=== PATIENT | male | born 1995 | race Caucasian/White ===

== ENCOUNTER 2017-02-02 15:38 | Emergency (ER) | payer SELFPAY ==
[2017-02-02 16:16] VITALS: BP 144/92; PULSE 96; O2SAT 97
--- NOTE | 2017-02-02 16:26 | ERPHSYRPT ---
- History of Present Illness Time Seen by Provider: 02/02/17 15:55 Source: patient, other (exgirlfriend; [facility] bilingual case manager Stanley Mcdonald) Patient Subjective Stated Complaint: PT STATES HE INJECTS METH-STATES HE HAS A HX OF IT-STATES HE LAST USED TODAY-INJECTED SAMIRA 0.5 G-"NOT ENOUGH"-STATES THAT IS HIS USUAL DOSE-DENIES PAIN-DENIES SOB-DENIES DIZZINESS NUMBNESS-STATES THAT HE HAS AN SAMIRA TOMORROW WITH STANLEY FROM [employer]-STATES HE WILL NOT GO INPT TREATMENT ANYWHERE-STATES HIS EXGIRLFRIEND "WOULD NOT SHUT THE HELL UP UNLESS I CAME IN HERE" Triage Nursing Assessment: PT PALE WARM ET [id number] TO ANSWER ANY QUESTION ASKED OF HIM-TENSE JERKY CONTROLLED MOVEMENTS NOTED-PT PICKING, LICKING HANDS ET FINGERS THROUGHOUT TRIAGE-PT STATED REPEATEDLY THAT HE DID NOT WANT TO HURT HIMSELF-PT STATED HE LIKED TO BE HIGH BUT DID NOT WANT TO HURT HIMSELF Physician History: CC: methamphetamine Hx: 21 y/o patient with hx of hepatitis C and meth abuse. He was out of [facility] for the past 7 weeks. Saw his HC case manger today and had plans to enter [facility] tomorrow and consideration for IP placement as able in next weeks. HE relapsed and started using meth. He shot meth an hour ago, has been using this week. Exgirlfriend brought him to ER wanting him to be admitted to IP. He denies complaints. No homicidal or suicidal ideation. No headache, pain, injury. No V/D. No fever. He states he does not want to be here and is ready to go home. Timing/Duration: today Allergies/Adverse Reactions: No Known Drug Allergies Allergy (Verified 02/02/17 16:16) Home Medications: No Reportable Medications [No Reported Medications] 02/02/17 [History] Hx Tetanus, Diphtheria Vaccination/Date Given: Yes Hx Influenza Vaccination/Date Given: No Hx Pneumococcal Vaccination/Date Given: No Immunizations Up to Date: Yes - Review of Systems Constitutional: No Fever, No Chills Eyes: No Symptoms Ears, Nose, & Throat: No Symptoms Respiratory: No Cough, No Dyspnea Cardiac: No Chest Pain Abdominal/Gastrointestinal: No Abdominal Pain, No Nausea, No Vomiting Skin: No Rash Neurological: No Dizziness, No Focal Weakness, No Headache, No Parasthesia Psychological: Drug Abuse, No Suicidal Ideations, No Homicidal Ideations, No Hallucinations All Other Systems: Reviewed and Negative - Past Medical History Pertinent Past Medical History: Yes Neurological History: No Pertinent History ENT History: No Pertinent History Cardiac History: No Pertinent History, Other Respiratory History: No Pertinent History Endocrine Medical History: No Pertinent History Musculoskeletal History: No Pertinent History GI Medical History: Hepatitis History: No Pertinent History Psycho-Social History: Depression Male Reproductive Disorders: No Pertinent History Other Medical History: pt reports a hx other than prior durg use and pneumonia. - Past Surgical History Past Surgical History: No Neuro Surgical History: No Pertinent History Cardiac: No Pertinent History Respiratory: No Pertinent History Gastrointestinal: No Pertinent History Genitourinary: No Pertinent History Musculoskeletal: No Pertinent History Male Surgical History: No Pertinent History Other Surgical History: Pt denies any past surgery hx - Social History Smoking Status: Current every day smoker How long have you smoked: 8 Exposure to second hand smoke: Yes Drug Use: methamphetamines Patient Lives Alone: No - Nursing Vital Signs Nursing Vital Signs: Initial Vital Signs Temperature 98.0 F 02/02/17 15:55 Pulse Rate 96 H 02/02/17 15:55 Respiratory Rate 20 02/02/17 15:55 Blood Pressure 144/92 02/02/17 15:55 O2 Sat by Pulse Oximetry 97 02/02/17 15:55 Pain Scale Pain Intensity 0 - Physical Exam General Appearance: alert, thin Eye Exam: PERRL/EOMI Ears, Nose, Throat Exam: normal ENT inspection, moist mucous membranes Neck Exam: normal inspection, non-tender, supple Respiratory Exam: normal breath sounds Cardiovascular Exam: regular rate/rhythm Gastrointestinal/Abdomen Exam: soft, No tenderness, No distention, No mass, No guarding Male Genitalia Exam: normal genitalia Extremity Exam: normal inspection, normal range of motion Neurologic Exam: alert, oriented x 3, cooperative, sensation nml, No motor deficits Skin Exam: warm, dry, other (heavily tattooed), No rash SpO2 Interpretation: normal SpO2: 97 Oxygen Delivery: Room Air - Course Nursing assessment & vital signs reviewed: Yes - Progress Progress Note: 02/02/17 16:25 Pt alert and oriented. He is calm. He understands situation. States I use meth but I don't want to hurt myself or anyone else. I want to go home. He plans to stay with his cousin in [place]. [facility] bilingual case manager Stanley here. She already met with pt. She feels he is safe and she will take him home to his cousin's. Pt declines labs or workup or medication. He appears to be stable for discharge. Counseled pt/family regarding: diagnosis, need for follow-up - Departure Time of Disposition: 16:26 Departure Disposition: Home Clinical Impression: Methamphetamine abuse, Hepatitis C Condition: Stable Critical Care Time: No Referrals: GLO FOSTER [Primary Care Provider] - Instructions: Methamphetamine. Additional Instructions: Return for problems or concerns. Stay in safe place. Follow up with [facility] as planned.
== END 2017-02-02 16:56 | disposition home or self-care (01) ==
LOC: ED 15:38
DX: F15.10 Other stimulant abuse, uncomplicated (principal); B19.20 Unspecified viral hepatitis C without hepatic coma
CPT/HCPCS: 99282; 99284

== ENCOUNTER 2018-08-09 17:19 | Emergency (ER) | payer OTHER ==
[2018-08-09 17:46] VITALS: BP 120/81; PULSE 65
[2018-08-09] MEDS ORDERED: solu-MEDROL 125 MG IM ONE (18:02)
[2018-08-09] MEDS ORDERED: Rocephin 1000 MG INJ IM ONE (18:02)
--- NOTE | 2018-08-09 18:11 | ERPHSYRPT ---
- History of Present Illness Time Seen by Provider: 08/09/18 17:50 Source: patient, family Exam Limitations: no limitations Patient Subjective Stated Complaint: here for a sinus infection after getting his nose broken 1 month ago.. did not follow up as planned Triage Nursing Assessment: alert and oriented and sniffing. maryjane has a sinus infection since he had his nose broken.. was [facility] and was to see a surgeon.. did not see the surgeon due to being arrested. he states the [facility] lost his medications and has not had them since the beginning of july. now he states he has a sinus infection. Physician History: 22 y/o white male presents with sinus pressure for 3 weeks. pt given rx of clindamycin. he was then incarcerated approx 2 to 3 days later and never received full tx. pt just released from [facility]. sx worse. pt does not have money for antibx but does have medical insurance. Timing/Duration: week(s) (3) Severity: mild Associated Symptoms: weakness, No nausea, No vomiting, No abdominal pain, No shortness of breath Allergies/Adverse Reactions: No Known Drug Allergies Allergy (Verified 02/02/17 16:16) Hx Tetanus, Diphtheria Vaccination/Date Given: Yes Hx Influenza Vaccination/Date Given: No Hx Pneumococcal Vaccination/Date Given: No Immunizations Up to Date: Yes - Review of Systems Constitutional: Weakness (mild) Eyes: No Symptoms Ears, Nose, & Throat: Nose Congestion, Nose Discharge, Sinus Drainage Respiratory: No Symptoms Cardiac: No Symptoms Abdominal/Gastrointestinal: No Symptoms Genitourinary Symptoms: No Symptoms Musculoskeletal: No Symptoms Skin: No Symptoms Neurological: No Symptoms Psychological: No Symptoms Endocrine: No Symptoms Hematologic/Lymphatic: No Symptoms Immunological/Allergic: No Symptoms All Other Systems: Reviewed and Negative - Past Medical History Pertinent Past Medical History: Yes Neurological History: No Pertinent History ENT History: No Pertinent History Cardiac History: No Pertinent History, Other Respiratory History: No Pertinent History Endocrine Medical History: No Pertinent History Musculoskeletal History: No Pertinent History GI Medical History: Hepatitis History: No Pertinent History Psycho-Social History: Depression Male Reproductive Disorders: No Pertinent History Other Medical History: pt reports a hx other than prior durg use and pneumonia. - Past Surgical History Past Surgical History: Yes Neuro Surgical History: No Pertinent History Cardiac: No Pertinent History Respiratory: No Pertinent History Gastrointestinal: No Pertinent History Genitourinary: No Pertinent History Musculoskeletal: No Pertinent History Male Surgical History: No Pertinent History Other Surgical History: Pt denies any past surgery hx - Social History Smoking Status: Current every day smoker How long have you smoked: 8 Exposure to second hand smoke: Yes Drug Use: methamphetamines Patient Lives Alone: No - Nursing Vital Signs Nursing Vital Signs: Initial Vital Signs Temperature 97.3 F 08/09/18 17:38 Pulse Rate 65 08/09/18 17:38 Respiratory Rate 18 08/09/18 17:38 Blood Pressure 120/81 08/09/18 17:38 O2 Sat by Pulse Oximetry 97 08/09/18 17:38 Pain Scale Pain Intensity 4 - Physical Exam General Appearance: no apparent distress, alert, anxiety Eye Exam: PERRL/EOMI Ears, Nose, Throat Exam: normal ENT inspection, moist mucous membranes Neck Exam: normal inspection, non-tender, supple, full range of motion Respiratory Exam: normal breath sounds, lungs clear, airway intact, No chest tenderness, No respiratory distress Cardiovascular Exam: regular rate/rhythm, normal heart sounds, normal peripheral pulses Gastrointestinal/Abdomen Exam: soft, normal bowel sounds, No tenderness, No guarding, No rebound Rectal Exam: not done Back Exam: normal inspection, normal range of motion, No CVA tenderness, No vertebral tenderness Extremity Exam: normal inspection, normal range of motion, pelvis stable Neurologic Exam: alert, oriented x 3, cooperative, rn testing II-XII nml as tested Skin Exam: normal color, warm, dry Lymphatic Exam: No adenopathy SpO2 Interpretation: normal SpO2: 97 O2 Delivery: Room Air Ordered Tests: Medication Summary Discontinued Medications Generic Name Dose Route Start Last Admin Trade Name Gerber PRN Reason Stop Dose Admin Ceftriaxone Sodium 1,000 mg 08/09/18 18:02 Rocephin 1000 Mg Inj IM 08/09/18 18:03 STAT ONE Ceftriaxone Sodium Confirm 08/09/18 18:14 Rocephin 1000 Mg Inj Administered 08/09/18 18:15 Dose 1,000 mg .ROUTE .STK-MED ONE Lidocaine HCl Confirm 08/09/18 18:14 Xylocaine 1% Hcl 20 Ml Mdv Administered 08/09/18 18:15 Dose 3 ml .ROUTE .STK-MED ONE Methylprednisolone Sodium Succinate 125 mg 08/09/18 18:02 Solu-Medrol 125 Mg IM 08/09/18 18:03 STAT ONE Methylprednisolone Sodium Succinate Confirm 08/09/18 18:14 Solu-Medrol 125 Mg Administered 08/09/18 18:15 Dose 125 mg .ROUTE .STK-MED ONE - Progress Progress: unchanged Counseled pt/family regarding: diagnosis, need for follow-up - Departure Time of Disposition: 18:12 Departure Disposition: Home Clinical Impression: Sinusitis Condition: Stable Critical Care Time: No Referrals: GLO FOSTER [Primary Care Provider] - Additional Instructions: take antibiotics as prescribed. follow up with primary doctor for further management. Prescriptions: Amoxicillin 500 mg Cap [Amoxil 500 mg] 500 mg PO TID #30 capsule Prednisone 10 mg [Deltasone 10 mg] 10 mg PO TID #12 tablet
[2018-08-09] MEDS ORDERED: XYLOCAINE 1% HCL 20 ML MDV ONE (18:14)
[2018-08-09] MEDS ORDERED: Rocephin 1000 MG INJ ONE (18:14)
[2018-08-09] MEDS ORDERED: solu-MEDROL 125 MG ONE (18:14)
[2018-08-09 18:45] VITALS: O2SAT 16
== END 2018-08-09 18:46 | disposition home or self-care (01) ==
LOC: ED 17:19
DX: J32.9 Chronic sinusitis, unspecified (principal); K75.9 Inflammatory liver disease, unspecified
CPT/HCPCS: 96372; 99284; J0696; J2930